=== PATIENT | female | born 1985 | race Hispanic/Latino ===

== ENCOUNTER 2024-05-07 23:36 | Emergency (ER) | payer BC ==
[~2024-05-07] VITALS: Ht 154.9 cm; Wt 90.7 kg
[2024-05-08 00:22] LABS: APPEARANCE,URINE CLEAR (CLEAR); BILIRUBIN,URINE NEGATIVE (NEGATIVE); COLOR,URINE COLORLESS (YELLOW); GLUCOSE, URINE (UA) NEGATIVE (NEGATIVE); KETONES,URINE NEGATIVE (NEGATIVE); LEUKOCYTE ESTERASE ,URINE NEGATIVE Leu/uL (NEGATIVE); NITRATE,URINE NEGATIVE (NEGATIVE); OCCULT BLOOD,URINE MODERATE (NEGATIVE); PH,URINE 6.5 (5.0-8.0); PROTEIN,URINE NEGATIVE (NEGATIVE); UROBILINOGEN,URINE 0.2 mg/dL (0.2-1.0)
[2024-05-08 00:25] LABS: CREATININE 0.7 mg/dL (0.5-1.0)
[2024-05-08 00:29] LABS: ADD UA MICROSCOPIC YES
[2024-05-08 00:32] LABS: AMPHET/METH SCREEN,URINE NEGATIVE (NEGATIVE); BARBITURATE SCREEN, URINE NEGATIVE (NEGATIVE); BENZODIAZEPINES SCREEN,URINE NEGATIVE (NEGATIVE); CANNABINOID SCREEN,URINE NEGATIVE (NEGATIVE); COCAINE SCREEN,URINE NEGATIVE (NEGATIVE); OPIATE SCREEN,URINE NEGATIVE (NEGATIVE); PHENCYCLIDINE SCREEN,URINE NEGATIVE (NEGATIVE)
[2024-05-08 00:34] LABS: HCG,QUALITATIVE URINE NEGATIVE (NEGATIVE)
--- NOTE | 2024-05-08 00:35 | HMCIMG ---
CHEST 1VW HISTORY: Chest pain COMPARISON: None FINDINGS: A frontal projection of the chest was obtained. No acute pulmonary infiltrates is seen. The heart is borderline enlarged. Prominent interstitial markings are seen. No evidence of aortic calcification is seen. IMPRESSION: 1. No acute pulmonary infiltrate is seen.
[2024-05-08 00:37] LABS: WBC,URINE 0-1 /HPF (0-1)
[2024-05-08 00:37] LABS: BASOPHILS # (AUTO) 0.09 K/uL (0.00-0.20); BASOPHILS % (AUTO) 0.8 % (0.0-5.0); EOSINOPHILS # (AUTO) 0.19 K/uL (0.00-0.70); EOSINOPHILS % (AUTO) 1.6 % (0.0-8.0); HEMATOCRIT 39.5 % (36-48); IMMATURE GRANULOCYTE ABSOLUTE 0.03 K/uL (0-1); LYMPHOCYTES % (AUTO) 25.3 % (21.0-51.0); MEAN CORPUSCULAR HEMOGLOBIN 26.9 pg (27.0-33.0); MEAN CORPUSCULAR HGB CONC 32.9 g/dL (32.0-36.0); MEAN CORPUSCULAR VOLUME 81.8 fL (79-99); MONOCYTES # (AUTO) 0.8 K/uL (0.1-1.0); NEUTROPHILS # (AUTO) 7.6 K/uL (1.8-7.7); PLATELET COUNT (AUTO) 293 K/uL (130-400); RED BLOOD CELL COUNT(AUTO) 4.83 MIL/uL (4.00-5.50); RED CELL DISTRIBUTION WIDTH 13.9 % (11.0-15.5); WHITE BLOOD COUNT (AUTO) 11.7 K/uL (4.8-10.8)
[2024-05-08 00:41] LABS: MAGNESIUM 1.9 mg/dL (1.80-2.40); THYROID STIMULATING HORMONE 2.57 uIU/mL (0.36-3.74)
[2024-05-08 00:57] LABS: B-TYPE NATRIURETIC PEPTIDE 10 pg/mL (0-100)
--- NOTE | 2024-05-08 01:47 | ERN ---
General Chief Complaint: Chest Pain Stated Complaint: CHEST PAIN, DIZZINESS-RESOLVED Time Seen by MD: 23:37 History of Present Illness Initial Comments 39-year-old female history of hypothyroidism and SVT, presents for episodes of SVT. Patient reports she developed SVT about eight years ago while . Since then she has had on and off episodes. She is currently taking 75 mg of flecainide b.i.d. and 125 mg of verapamil daily. She reports that yesterday she had a brief episode lasting about 5 minutes, today she had an episode that lasted about 30 minutes. At that time she was beginning to feel quite dizzy and had some chest discomfort. She took a flecainide and it resolved. EMS was called, she has had stable vital signs with the EMS. She is currently asymptomatic on arrival. Street Sweeper: Sharmila Allergies: Coded Allergies: No Known Drug Allergies (Unverified Allergy, Unknown, 05/07/24) Past Medical History Past Medical History: Hypothyroid Medical History Other: SVT Past Surgical History: ROS Dictation CONSTITUTIONAL: No chills, no fever, no weakness, no diaphoresis, no malaise. HEAD/FACE: No signs of trauma. EENT: No eye pain, no blurred vision, no tearing, no double vision, no ear pain, no ear discharge, no nose pain, no nasal congestion, no throat pain, no throat swelling, no mouth pain. RESPIRATORY: No cough, no orthopnea, no SOB, no stridor, no wheezing. CARDIOVASCULAR: No chest pain, no edema, no palpitations, no syncope. GASTROINTESTINAL/ABDOMINAL: No abdominal pain, no constipation, no diarrhea, no nausea, no vomiting. GENITOURINARY: No abnormal discharge, no dysuria, no frequent urination, no hematuria. No complaints of pain in the genitals. MUSCULOSKELETAL: No back pain, no gout, no joint pain, no joint swelling, no muscle pain, no muscle stiffness, no neck pain. INTEGUMENTARY: No change in color, no change in hair/nails, no dryness, no lesion, no lumps, no rash. NEUROLOGICAL/PSYCH: No anxiety, not depressed, no emotional problem, no headache, no numbness, no pre-existing deficit, no history of seizures, no tremors, no weakness. HEMATOLOGIC/LYMPHATIC: Not anemic, no history of blood clots, no apparent bleeding, no bruising, glands not swollen. All Systems Negative, Except as Noted. s Physical Exam Physical Exam Dictation VITAL SIGNS: Reviewed. GENERAL APPEARANCE: Alert, oriented x3, no acute distress, obese. HEAD AND FACE: Non-traumatic. EYES: PERRL, pink conjunctivas, eyelid no trauma, anterior chamber clear. EARS: Pinnas intact and no signs of trauma or erythema. Ear canals clear and no discharge. TMs no erythema. NOSE: No discharge, no bleeding. OROPHARYNX: Mouth normal, teeth no caries, tongue pink. Pharynx clear, no erythema. Tonsils no exudates, no abscesses noted. Mucous membrane moist. NECK: Supple, non-tender, no thyromegaly, no masses, no JVD, no bruits. BREAST: Deferred. CHEST: No tenderness, no crepitus, no paradoxical movement, no retractions. LUNGS: Clear, well-ventilated, symmetric, no rales, no wheezing, no rhonchi, no stridor, good breath sounds bilaterally. HEART: Regular rate, regular rhythm, no murmur, no gallops. VASCULAR: No peripheral edema. ABDOMEN: Soft, positive bowel sounds, nondistended, no guarding, nontender, no rebound, no masses no hepatomegaly, no splenomegaly, no Cunha's sign, no hernias. RECTAL: Deferred. GENITAL: Deferred. NEUROLOGICAL: Normal speech, gross motor function intact, gross sensory function intact. MUSCULOSKELETAL: Neck nontender, full range of motion, back nontender, full range of motion. EXTREMITIES: Nontender, full range of motion. SKIN: Color pink, dry, no turgor, no rash, no lacerations, no abrasions, no contusions. LYMPHATICS: Deferred. Results Laboratory and Microbiology Lab and Micro Result Laboratory Tests Test 05/08/24 00:04 05/08/24 00:06 White Blood Count 11.7 K/uL (4.8-10.8) H Red Blood Count 4.83 MIL/uL (4.00-5.50) Hemoglobin 13.0 g/dL (12.0-16.0) Hematocrit 39.5 % (36-48) Mean Corpuscular Volume 81.8 fL (79-99) Mean Corpuscular Hemoglobin 26.9 pg (27.0-33.0) L Mean Corpuscular Hemoglobin Concent 32.9 g/dL (32.0-36.0) Red Cell Distribution Width 13.9 % (11.0-15.5) Platelet Count 293 K/uL (130-400) Mean Platelet Volume 10.1 fL (7.5-10.5) Immature Granulocyte % (Auto) 0.3 % (0-1) Neutrophils (%) (Auto) 65.0 % (40.0-77.0) Lymphocytes (%) (Auto) 25.3 % (21.0-51.0) Monocytes (%) (Auto) 7.0 % (3.0-13.0) Eosinophils (%) (Auto) 1.6 % (0.0-8.0) Basophils (%) (Auto) 0.8 % (0.0-5.0) Neutrophils # (Auto) 7.6 K/uL (1.8-7.7) Lymphocytes # (Auto) 3.0 K/uL (1.0-4.8) Monocytes # (Auto) 0.8 K/uL (0.1-1.0) Eosinophils # (Auto) 0.19 K/uL (0.00-0.70) Basophils # (Auto) 0.09 K/uL (0.00-0.20) Absolute Immature Granulocyte (auto 0.03 K/uL (0-1) Nucleated Red Blood Cells 0.0 % (0.0-0.19) Sodium Level 136 mmol/L (136-145) Potassium Level 4.0 mmol/L (3.5-5.1) Chloride Level 101 mmol/L (101-111) Carbon Dioxide Level 27 mmol/L (21-32) Blood Urea Nitrogen 10 mg/dL (7-18) Creatinine 0.7 mg/dL (0.5-1.0) Glomerular Filtration Rate Calc 114 mL/min (>90) Random Glucose 150 mg/dL (70-105) H Total Calcium 8.5 mg/dL (8.5-10.1) Magnesium Level 1.90 mg/dL (1.80-2.40) Troponin I High Sensitivity < 4 ng/L (4-50) L B-Type Natriuretic Peptide 10 pg/mL (0-100) Triglycerides Level 233 mg/dL (30-200) H Cholesterol Level 185 mg/dL (<200) LDL Cholesterol 100 mg/dL (0-99) H HDL Cholesterol 50 mg/dL (35-85) Thyroid Stimulating Hormone (TSH) 2.57 uIU/mL (0.36-3.74) Urine Color COLORLESS (YELLOW) Urine Appearance CLEAR (CLEAR) Urine pH 6.5 (5.0-8.0) Urine Specific [place] 1.014 (1.001-1.031) Urine Protein NEGATIVE mg/dL (NEGATIVE) Urine Glucose (UA) NEGATIVE mg/dL (NEGATIVE) Urine Ketones NEGATIVE mg/dL (NEGATIVE) Urine Occult Blood MODERATE (NEGATIVE) H Urine Nitrate NEGATIVE (NEGATIVE) Urine Bilirubin NEGATIVE mg/dL (NEGATIVE) Urine Urobilinogen 0.2 mg/dL (0.2-1.0) Urine Leukocyte Esterase NEGATIVE Omid/uL Urine RBC 6-10 /HPF (0-1) H Urine WBC 0-1 /HPF (0-1) Urine Bacteria None /HPF (None Seen) Urine HCG, Qualitative NEGATIVE (NEGATIVE) Urine Opiates Screen NEGATIVE (NEGATIVE) Urine Barbiturates Screen NEGATIVE (NEGATIVE) Urine Phencyclidine Screen NEGATIVE (NEGATIVE) Urine Amphetamines Screen NEGATIVE (NEGATIVE) Urine Benzodiazepines Screen NEGATIVE (NEGATIVE) Urine Cocaine Screen NEGATIVE (NEGATIVE) Urine Marijuana (THC) Screen NEGATIVE (NEGATIVE) MDM CC: Palpitations and SVT with chest pain Historian: Patient Comorbidities: SVT and hypothyroidism Limitations by social determinants of health: None Differential diagnosis: SVT, electrolyte abnormalities, dehydration, ACS, other. EKG (independently ordered and interpreted by me ): Normal sinus rhythm rate of 98 normal axis good R-wave progression intervals are stable. No STEMI. Vital signs: Stable here in the ER. No episodes of tachycardia. Blood pressure remained stable. Labs (independently interpreted by): normal CBC, BMP, troponin, BNP, magnesium, TSH CXR (independently interpreted by me): no cardiomegaly, no effusions Patient monitored for 2 hours on tele, no further episodes. I offered admission but the patient prefers DC. She's stable. She'll contact Dr Corley's office tomorrow. ED Course Orders Procedure Category Date Status Time Cbc With Differential LAB 05/07/24 Complete 23:38 B-Type Natriuretic LAB 05/07/24 Complete Peptide 23:38 Lipid Panel LAB 05/07/24 Complete 23:38 Chest 1vw RAD 05/07/24 Resulted 23:38 12 Lead Ekg Tracing- EKG 05/07/24 Logged Technical 23:38 Troponin I High LAB 05/07/24 Complete Sensitivity 23:38 Urinalysis Profile LAB 05/07/24 Complete 23:38 Basic Metabolic Panel LAB 05/07/24 Complete 23:38 Magnesium LAB 05/07/24 Complete 23:38 Thyroid Stimulating LAB 05/07/24 Complete Hormone 23:38 Drug Screen Urine LAB 05/07/24 Complete 23:38 ,Urine Test LAB 05/07/24 Complete 23:38 Vital Signs Date Time Temp Pulse Resp B/P (MAP) Pulse Ox O2 Delivery O2 Flow Rate FiO2 05/08/24 01:54 98.2 85 18 116/69 99 Room Air* 0 21 05/08/24 01:30 98.6 87 18 119/66 97 Room Air* 0 21 05/08/24 00:33 92 20 142/81 98 Room Air* 0 21 05/07/24 23:46 98.2 102 20 138/79 99 Room Air* 0 21 05/07/24 23:38 99.0 101 17 114/70 99 Room Air 0 05/07/24 23:37 99.0 101 17 114/70 99 Room Air* 0 21 DX & DISP Disposition: Discharge Departure Impression: Primary Impression: SVT (supraventricular tachycardia) Condition: Stable Additional Instructions: You had an episode of SVT today. Your EKG has been normal here. Your heart rate has been normal. Your labwork (CBC, BMP, magnesium, TSH, BNP, HCG, UA, UDS) is normal. Continue with your home medications. Please follow up with Dr Bourgeois. Return to the ED as needed. Referrals: DWAIN CLARK (PCP) SOLEDAD HINKLE DO May 08, 2024 01:47
[2024-05-08 01:54] VITALS: BP 116/69; PULSE 85; RESP 18; TEMP 98.2; O2SAT 99
--- NOTE | 2024-05-08 06:23 | EKG ---
[facility] Test Date: 2024-05-07 Test Time: 23:47:38 Pat Name: FABIANO HARTLEY Department: ED Room: Gender: Female Winding Inspector And Tester: [id number] : 1985 Requested By: SOLEDAD HINKLE Order Number: [id number] Reading MD: Measurements Intervals [place] Rate: 98 P: 27 MT: 166 QRS: 23 QRSD: 84 T: 23 QT: 350 QTc: 446 Interpretive Statements Sinus rhythm Probable left atrial enlargement No previous ECG available for comparison Please click the below link to view image of tracing.
== END 2024-05-08 01:56 | disposition home or self-care (01) ==
LOC: EDH 23:36
DX: I47.10 Supraventricular tachycardia, unspecified (principal); E03.9 Hypothyroidism, unspecified; Z79.899 Other long term (current) drug therapy
CPT/HCPCS: 36415; 71045; 80048; 80061; 80305; 81001; 81025; 83735; 83880; 84443; 84484; 85025; 93005; 99284

== ENCOUNTER 2024-08-07 23:50 | Emergency (ER) | payer BC ==
[~2024-08-07] VITALS: Ht 154.9 cm; Wt 90.7 kg
[2024-08-07 23:52] VITALS: TEMP 100
--- NOTE | 2024-08-08 00:02 | ERN ---
ED Note History of Present Illness Stated Complaint: SVT Chief Complaint: Palpitations Time Seen by MD: 23:59 Dictation: This is a 39-year-old morbidly obese female presented to the emergency room with severe palpitations that started around 0. She stated that she was at a dinner and took some sips of alcohol and and eventually started experiencing palpitations. She has a history of supraventricular tachycardia that was diagnosed a few months ago and usually it converts to normal sinus rhythm on its own in a few minutes however today she had persistently increased heart rate in she came to the ER. Her initial heart rate was in the 190s but eventually she settle down to 110 to 115 No chest pain syncope She took flecainide around 11:00 p.m.. Temperature 98.4 pulse 196 respirations 38 blood pressure 159/99 with a pulse oximetry of 100% on room air at presentation Repeat heart rate is about 100-102 respiratory rate went down to 20s Her chronic medical problems include hypothyroidism and SVT Allergies: Coded Allergies: No Known Drug Allergies (Unverified Allergy, Unknown, 05/07/24) Past Medical History Past Medical History: Hypothyroid Additional Past Medical Hx: SVT Surgical History: Family History: Negative Social History: ETOH RN Note Reviewed/Agreed w/PFSH: Yes Review of System Dictation Constitutional: Negative for fever,chills, and weight loss Eyes: Negative for injury, pain,redness, and discharge ENT: Negative for injury,pain or swelling Cardiovascular: Negative for chest pain, positive for palpitations, and edema Respiratory: Negative for shortness of breath, cough, and wheezing, Abdomen/GI: Negative for abdominal pain, nausea, vomiting, diarrhea, and con stipation Back: Negative for injury and pain : Negative for injury, bleeding and discharge MS/Extremity: Negative for injury and deformity Skin: Negative for rash, and discoloration Neuro: Negative for headache, weakness, numbness, tingling, and seizure Psych: Negative for suicide ideation, homicidal ideation, and hallucinations Initial Vital Sign VS Vital Signs Date Time Temp Pulse Resp B/P (MAP) Pulse Ox O2 Delivery O2 Flow Rate FiO2 08/07/24 23:52 100.0 196 38 159/99 100 Room Air 0 08/08/24 00:26 21 Physical Exam Dictation General: awake, alert, NAD obese with a BMI of 38 Head/Face: Normocephalic, atraumatic Eyes: PERRL, EOMI, vision at baseline ENT: oral cavity clear, TMs clear, no signs of infection Neck: Trachea midline, supple, no nuchal rigidity Cardiovascular: RRR, normal S1/S2, No MRGs, no JVD Respiratory: CTAB, no respiratory distress, No rales or wheezes Abdomen: Soft, non-tender, non-distended, normal bowel sounds, no guarding or rebound. Skin: Warm, dry, normal turgor, no rash MS/Extremity: Pulses equal, no cyanosis, neurovascular intact, FROM Neuro: COAx4, GCS 15, strength 5/5, CN 2-12 intact, normal cerebellar exam, normal gait, Psych: Normal behavior, mood, and affect normal Extremities-trace edema without any palpable cords, Homans sign is negative Results (Laboratory/Radiology) Laboratory/Radiology Laboratory Tests Test 08/07/24 23:56 08/08/24 00:14 White Blood Count 12.8 K/uL (4.8-10.8) H Red Blood Count 5.29 MIL/uL (4.00-5.50) Hemoglobin 14.1 g/dL (12.0-16.0) Hematocrit 43.6 % (36-48) Mean Corpuscular Volume 82.4 fL (79-99) Mean Corpuscular Hemoglobin 26.7 pg (27.0-33.0) L Mean Corpuscular Hemoglobin Concent 32.3 g/dL (32.0-36.0) Red Cell Distribution Width 13.9 % (11.0-15.5) Platelet Count 295 K/uL (130-400) Mean Platelet Volume 9.6 fL (7.5-10.5) Immature Granulocyte % (Auto) 0.5 % (0-1) Neutrophils (%) (Auto) 64.6 % (40.0-77.0) Lymphocytes (%) (Auto) 26.4 % (21.0-51.0) Monocytes (%) (Auto) 6.2 % (3.0-13.0) Eosinophils (%) (Auto) 1.6 % (0.0-8.0) Basophils (%) (Auto) 0.7 % (0.0-5.0) Neutrophils # (Auto) 8.3 K/uL (1.8-7.7) H Lymphocytes # (Auto) 3.4 K/uL (1.0-4.8) Monocytes # (Auto) 0.8 K/uL (0.1-1.0) Eosinophils # (Auto) 0.20 K/uL (0.00-0.70) Basophils # (Auto) 0.09 K/uL (0.00-0.20) Absolute Immature Granulocyte (auto 0.06 K/uL (0-1) Nucleated Red Blood Cells 0.0 % (0.0-0.19) Sodium Level 138 mmol/L (136-145) Potassium Level 3.7 mmol/L (3.5-5.1) Chloride Level 100 mmol/L (101-111) L Carbon Dioxide Level 27 mmol/L (21-32) Blood Urea Nitrogen 9 mg/dL (7-18) Creatinine 0.8 mg/dL (0.5-1.0) Glomerular Filtration Rate Calc 97 mL/min (>90) Random Glucose 123 mg/dL (70-105) H Total Calcium 9.0 mg/dL (8.5-10.1) Troponin I High Sensitivity < 4 ng/L (4-50) L Urine Color COLORLESS (YELLOW) Urine Appearance CLEAR (CLEAR) Urine pH 6.5 (5.0-8.0) Urine Specific [place] 1.005 (1.001-1.031) Urine Protein NEGATIVE mg/dL (NEGATIVE) Urine Glucose (UA) NEGATIVE mg/dL (NEGATIVE) Urine Ketones NEGATIVE mg/dL (NEGATIVE) Urine Occult Blood SMALL (NEGATIVE) H Urine Nitrate NEGATIVE (NEGATIVE) Urine Bilirubin NEGATIVE mg/dL (NEGATIVE) Urine Urobilinogen 0.2 mg/dL (0.2-1.0) Urine Leukocyte Esterase NEGATIVE Omid/uL Urine RBC 2-5 /HPF (0-1) H Urine WBC 0-1 /HPF (0-1) Urine Squamous Epithelial Cells RARE /HPF (0-2) Urine Bacteria RARE /HPF (None Seen) Urine HCG, Qualitative NEGATIVE (NEGATIVE) Urine Opiates Screen NEGATIVE (NEGATIVE) Urine Barbiturates Screen NEGATIVE (NEGATIVE) Urine Phencyclidine Screen NEGATIVE (NEGATIVE) Urine Amphetamines Screen NEGATIVE (NEGATIVE) Urine Benzodiazepines Screen NEGATIVE (NEGATIVE) Urine Cocaine Screen NEGATIVE (NEGATIVE) Urine Marijuana (THC) Screen NEGATIVE (NEGATIVE) Labs Reviewed?: Yes EKG Comment: Twelve lead EKG done on 08/07/2024 at 11:51 p.m. showed a heart rate of 188, PA interval 112, QRS 72, QT/QTC 273/483. Impression narrow complex tachycardia-consistent with supraventricular tachycardia, repolarization changes associated with a tachycardia. EKG rhythms strip showed SVT in the heart rates of 180s Interpreted by ER MD Dr. Pratt ED Course ED Course Orders Procedure Category Date Status Time 12 Lead Ekg Tracing- EKG 08/07/24 Logged Technical 23:58 Cbc With Differential LAB 08/07/24 Complete 23:58 Basic Metabolic Panel LAB 08/07/24 Complete 23:58 Troponin I High LAB 08/07/24 Complete Sensitivity 23:58 0.9% Nacl 500ml PHA 08/08/24 Complete Iv.Soln (Ns 500ml 00:00 Drug Screen Urine LAB 08/07/24 Complete 23:59 Urinalysis Profile LAB 08/07/24 Complete 23:59 Chest 1vw RAD 08/07/24 Taken 23:59 Diltiazem 25mg Inj PHA 08/08/24 Complete (Cardizem 25mg Inj) 00:30 ,Urine Test LAB 08/08/24 Complete 00:13 Current Medications Medications (Trade) Dose Ordered Sig/Kelsey Route PRN Reason Start Time Stop Time Status Last Admin Dose Admin Diltiazem HCl (CARDIzem 25MG INJ) 10 mg ONCE ONCE IVP 08/08/24 00:30 08/08/24 00:31 DC Sodium Chloride 500 ml @ 0 mls/hr ONCE ONCE IV 08/08/24 00:00 08/08/24 00:05 DC 08/08/24 00:18 Vital Signs Date Time Temp Pulse Resp B/P (MAP) Pulse Ox O2 Delivery O2 Flow Rate FiO2 08/08/24 02:00 83 18 131/95 97 Room Air* 0 21 08/08/24 01:17 98 16 128/85 98 Room Air* 0 21 08/08/24 00:26 101 18 136/91 97 Room Air* 0 21 08/08/24 00:25 101 136/91 08/07/24 23:52 100.0 196 38 159/99 100 Room Air 0 We will perform diagnostic labs, advanced imaging and administer medications according to the patient's complaint. Once the results are available, will review and personally interpreted the labs to rule out any acute life- threatening emergency the trach require immediate intervention and treatment. I will then re-evaluate the patient after treatment and diagnostic exams have return to determine whether the patient requires any further testing, can safely be discharged home or need further admission to hospital for additional treatment and evaluation. Labs reviewed CBC showed a white count of 12.8. BNP 7 is with a normal limits troponins are negative. Chest x-ray did not show any acute infiltrates or obvious congestive heart failure. 2:22 a.m. patient has remained in the normal sinus rhythm with heart rates in the 80s for the past 2 hours Discharge to home to follow up with Cardiology Counseling done on avoiding caffeine, alcohol stimulants. Medical Decision Making MDM MDM: Differential diagnosis: SVT likely triggered by dehydration, low-grade infection, alcohol, stimulants Rationale: Tests considered and ordered secondary to shared decision making include: Previous outside records reviewed: Old ER visits. Risk of complication and/or morbidity or mortality of patient management: None Medications-Per medication reconciliation Need for hospitalization: Patient does not meet criteria for hospitalization. Need for emergency major/minor surgery: No There are no social concerns with this patient. Prescription drug management Prescriptions will include symptomatic care Patient's prior external medical records from other ER visits were reviewed by me as indicated. Prior testing and results from previous visits were reviewed. Prior tests were taken into account with medical decision making and resource utilization, independent historian/historians were used to obtain complete medical history. I independently interpreted the test that were performed, results were reviewed by me and considered findings on radiology if ordered. Medical management and examination interpretation discussions were had by me with other qualified healthcare professionals as indicated for the patient's care. Problem List Problem List: (1) SVT (supraventricular tachycardia) DX & DISP Disposition: Discharge Departure Impression: Primary Impression: SVT (supraventricular tachycardia) Condition: Stable Additional Instructions: Patient and the caregiver have been informed of all the diagnostic tests and the imaging conducted during the today's visit to the emergency room and has verbalized understanding of the results I have personally reviewed and interpreted all diagnostic exams performed here in the ER today as well as the vital signs documented by the nursing staff. The patient is now being discharged to home and should follow up with the primary care physician or the specialist as directed by the ER staff. Follow-up with primary care provider in 1 to 2 days. Take medications as directed here in the emergency room. Okay to continue home medications unless otherwise discussed during your visit in the emergency room today. Return to your nearest emergency room if symptoms worsen or if there is no improvement. Call 911 if you need immediate assistance. Take Tylenol or Motrin [id number] as needed and if no contraindications are present. Increase oral hydration. A wound culture or urine culture was ordered here in the emergency room department please follow-up with primary care provider and advise them to get repeat ports from our facility. If you had any Davis wrap/splints that were applied here, please do not remove them until you see your primary care or specialty. Referrals: DWAIN CLARK (PCP) JANIE PRATT MD Aug 08, 2024 00:02
[2024-08-08 00:09] LABS: BASOPHILS # (AUTO) 0.09 K/uL (0.00-0.20); BASOPHILS % (AUTO) 0.7 % (0.0-5.0); EOSINOPHILS % (AUTO) 1.6 % (0.0-8.0); HEMATOCRIT 43.6 % (36-48); IMMATURE GRANULOCYTE ABSOLUTE 0.06 K/uL (0-1); LYMPHOCYTES # (AUTO) 3.4 K/uL (1.0-4.8); LYMPHOCYTES % (AUTO) 26.4 % (21.0-51.0); MEAN CORPUSCULAR HEMOGLOBIN 26.7 pg (27.0-33.0); MEAN CORPUSCULAR HGB CONC 32.3 g/dL (32.0-36.0); MEAN CORPUSCULAR VOLUME 82.4 fL (79-99); MONOCYTES # (AUTO) 0.8 K/uL (0.1-1.0); MONOCYTES % (AUTO) 6.2 % (3.0-13.0); NEUTROPHILS # (AUTO) 8.3 K/uL (1.8-7.7); NEUTROPHILS % (AUTO) 64.6 % (40.0-77.0); PLATELET COUNT (AUTO) 295 K/uL (130-400); RED BLOOD CELL COUNT(AUTO) 5.29 MIL/uL (4.00-5.50); RED CELL DISTRIBUTION WIDTH 13.9 % (11.0-15.5); WHITE BLOOD COUNT (AUTO) 12.8 K/uL (4.8-10.8)
[2024-08-08] MEDS: 0.9% NACL 500ML IV.SOLN 500 ML IV ONE (00:18)
[2024-08-08] MEDS: dilTIAZem 25MG INJ IVP ONE (00:19)
[2024-08-08 00:22] LABS: CREATININE 0.8 mg/dL (0.5-1.0); POTASSIUM 3.7 mmol/L (3.5-5.1)
[2024-08-08 00:29] LABS: APPEARANCE,URINE CLEAR (CLEAR); BILIRUBIN,URINE NEGATIVE (NEGATIVE); COLOR,URINE COLORLESS (YELLOW); GLUCOSE, URINE (UA) NEGATIVE (NEGATIVE); KETONES,URINE NEGATIVE (NEGATIVE); LEUKOCYTE ESTERASE ,URINE NEGATIVE Leu/uL (NEGATIVE); NITRATE,URINE NEGATIVE (NEGATIVE); OCCULT BLOOD,URINE SMALL (NEGATIVE); PH,URINE 6.5 (5.0-8.0); PROTEIN,URINE NEGATIVE (NEGATIVE); UROBILINOGEN,URINE 0.2 mg/dL (0.2-1.0)
[2024-08-08 00:31] LABS: ADD UA MICROSCOPIC YES
[2024-08-08 00:32] LABS: BACTERIA,URINE RARE /HPF (None Seen); MUCUS,URINE RARE LPF (None Seen); SQUAMOUS EPITHELIAL CELL,UR RARE /HPF (0-2); WBC,URINE 0-1 /HPF (0-1)
[2024-08-08 00:36] LABS: AMPHET/METH SCREEN,URINE NEGATIVE (NEGATIVE); BARBITURATE SCREEN, URINE NEGATIVE (NEGATIVE); BENZODIAZEPINES SCREEN,URINE NEGATIVE (NEGATIVE); CANNABINOID SCREEN,URINE NEGATIVE (NEGATIVE); COCAINE SCREEN,URINE NEGATIVE (NEGATIVE); OPIATE SCREEN,URINE NEGATIVE (NEGATIVE); PHENCYCLIDINE SCREEN,URINE NEGATIVE (NEGATIVE)
[2024-08-08 02:00] VITALS: BP 131/95; PULSE 83; RESP 18; O2SAT 97
--- NOTE | 2024-08-08 08:31 | HMCIMG ---
PORTABLE CHEST RADIOGRAPH INDICATION: supra ventricular tachycardia COMPARISON: 05/07/2024 FINDINGS: portrait studio photographer leads overlie the field of view. Heart size is normal. The pulmonary vascularity and aliya appear normal. No abnormal pulmonary parenchymal opacity or consolidation identified. No significant pleural effusion noted. No pneumothorax detected. IMPRESSION: No radiographic evidence for any acute cardiopulmonary process.
--- NOTE | 2024-08-08 10:46 | EKG ---
[facility] Test Date: 2024-08-07 Test Time: 23:51:11 Pat Name: FABIANO HARTLEY Department: ED Room: Gender: F Cadd Technician: [id number] : 1985 Requested By: JANIE PRATT Order Number: [id number] Reading MD: Zeferino Roque Measurements Intervals [place] Rate: 188 P: 192 [place]: 112 QRS: 38 QRSD: 72 T: 11 QT: 273 QTc: 483 Interpretive Statements Supraventricular tachycardia, uncertain mechanism Repolarization abnormality, prob rate related Compared to ECG 05/07/2024 23:47:38 Early repolarization now present Sinus rhythm no longer present Electronically Signed On 08-08-2024 11:46:27 CDT by Zeferino Roque Please click the below link to view image of tracing.
== END 2024-08-08 02:40 | disposition home or self-care (01) ==
LOC: EDH 23:50
DX: I47.10 Supraventricular tachycardia, unspecified (principal); E03.9 Hypothyroidism, unspecified
CPT/HCPCS: 99284; 71045; 84484; 80048; 80305; 85025; 81025; 36415; 93005; 81001; J7040; J3490